=== PATIENT | female | born 1955 | race Caucasian/White ===

== ENCOUNTER 2023-06-19 15:08 | Emergency (ER) | payer OTHER ==
[~2023-06-19] VITALS: Ht 182.9 cm; Wt 68.3 kg
[~2023-06-19 15:08] MED LIST: ARIP2TAB PO; BECL0.07 INH; CITA20TA3 PO; HYDR12.59 PO; NOR10T PO
[2023-06-19] MEDS ORDERED: HYDR-4902 PO (16:26)
[2023-06-19] MEDS ORDERED: HYDROcodone-ACET 5/325MG TAB PO ONE (16:30)
[2023-06-19 17:08] VITALS: BP 120/66; PULSE 60; RESP 20; TEMP 97.9; O2SAT 100
== END 2023-06-19 17:22 | disposition home or self-care (01) ==
LOC: ER 15:08
DX: S93.602A Unspecified sprain of left foot, initial encounter (principal); I10 Essential (primary) hypertension; E78.5 Hyperlipidemia, unspecified; Z79.899 Other long term (current) drug therapy; Z88.0 Allergy status to penicillin; W20.8XXA Other cause of strike by thrown, projected or falling object, initial encounter; Y92.89 Other specified places as the place of occurrence of the external cause; Y93.89 Activity, other specified; Y99.8 Other external cause status
CPT/HCPCS: 73630

== ENCOUNTER 2024-07-19 15:01 | Inpatient (IN) | payer OTHER, MEDICAID ==
[~2024-07-19] VITALS: Ht 180.3 cm; Wt 68.1 kg
[2024-07-19] VITALS (26 sets, daily range): BP systolic 94–126; BP diastolic 38–62; PULSE 60–81; RESP 16–18; TEMP 97.7; O2SAT 96–100
[~2024-07-19 15:01] MED LIST changes: +ATOR20TA PO; +CITA-73 PO; +HYDR-4902 PO; +OFL50TS OT; +OXYB5TAB14 PO; +TIZA1TAB20 PO; +TRAZ1TAB12 PO
[2024-07-19] MEDS: SODIUM CHLORIDE 0.9% 1,000 ML IV ONE (15:15)
[2024-07-19 16:10] LABS: Basophils # (auto) 0.1 10 ^3/uL (0-0.2); Basophils % (auto) 0.5 % (0.0-2.0); Eosinophils # (auto) 0.1 10 ^3/uL (0-0.8); Eosinophils % (auto) 0.8 % (0.0-7.0); Hematocrit 38.5 % (36.0-46.0); Hemoglobin 13.5 g/dL (12.2-16.2); Lymphocytes # (auto) 1.5 10 ^3/uL (0.4-5.4); Lymphocytes % (auto) 13.7 % (10.0-50.0); Mean Corpuscular Hemoglobin 29.4 pg (28.0-32.0); Monocytes # (auto) 0.9 10 ^3/uL (0-1.3); Monocytes % (auto) 8.1 % (0.0-12.0); Neutrophils # (auto) 8.3 10 ^3/uL (1.6-8.6); Neutrophils % (auto) 76.9 % (37.0-80.0); Nucleated Red Blood Cells % 0.1 %; Platelet Count (auto) 307 10^3/uL (140-450); Red Blood Cells 4.58 10^6/uL (4.0-5.20); Red Cell Distribution Width 14.5 % (11.8-14.3); White Blood Cell 10.8 10^3/uL (4.4-10.8)
[2024-07-19 16:21] LABS: Chloride 96 mmol/L (98-107); Sodium 135 mmol/L (136-145)
[2024-07-19 16:22] LABS: Anion Gap 10 (5-15); Calcium 8.1 mg/dL (8.7-10.4); Carbon Dioxide 29 mmol/L (20-31)
[2024-07-19 16:27] LABS: Blood Urea Nitrogen 26 mg/dL (9-23); Glucose 121 mg/dL (74-106)
[2024-07-19 16:31] LABS: Potassium 2.1 mmol/L (3.5-5.1)
[2024-07-19] MEDS: POTASSIUM CHL 20MEQ/100ML 100 ML IV SCH (16:48)
[2024-07-19] MEDS: POTASSIUM CHL 20MEQ/100ML 300 ML IV ONE (16:57)
[2024-07-19] MEDS: LIDOCAINE HCL 100 MG/5ML (2%) SYRG INJ IV ONE (17:04)
[2024-07-19] MEDS: MIDAZOLAM HCL 5 MG/ML-1ML VIAL IV ONE (17:06)
[2024-07-19] MEDS: ETOMIDATE (2MG/ML) 20ML VIAL IV ONE ×2 (17:06→17:09)
[2024-07-19] MEDS: MIDAZOLAM HCL 5 MG/ML-1ML VIAL ONE (17:10)
[2024-07-19] MEDS: MIDAZOLAM DRIP 50 mg/50mL 50 ML IV ONE ×2 (17:17→18:28)
[2024-07-19] MEDS: DOPamine 1600MCG/ML D5W 0 ML IV ONE (17:17)
[2024-07-19] MEDS: DOPamine 1600MCG/ML D5W 250 ML IV SCH (17:18)
[2024-07-19] MEDS: fentaNYL Drip 2500mCg/250mlNS 250 ML IV SCH (17:50)
[2024-07-19] MEDS: fentaNYL Drip 2500mCg/250mlNS 250 ML IV ONE (17:59)
[2024-07-19] MEDS: PROPOFOL 100 ML IV SCH (18:31)
[2024-07-19] MEDS: MIDAZOLAM DRIP 50 mg/50mL 50 ML IV SCH (18:35)
[2024-07-19 18:55] LABS: Base Excess 3.6 mmol/L (-2.0-3.0)
[2024-07-19] MEDS ORDERED: MORPHINE SULFATE INJ 2 MG/ml SYRG IV PRN (19:15)
[2024-07-19] MEDS ORDERED: NITROGLYCERIN 0.4 MG SL TAB SL PRN (19:15)
[2024-07-19] MEDS ORDERED: HYDROmorphone HCL 2 MG/ML VL/or syr IV PRN (19:15)
[2024-07-19 20:25] LABS: Alanine Aminotransferase 15 U/L (7-40); Albumin 3.4 g/dL (3.2-4.8); Alkaline Phosphatase 94 U/L (46-116); Anion Gap 9 (5-15); Aspartate Aminotransferase 35 U/L (13-40); BUN/Creatinine Ratio 17.2 (10.0-20.0); Bilirubin, Total 0.9 mg/dL (0.2-1.0); Blood Urea Nitrogen 21 mg/dL (9-23); Calcium 8.1 mg/dL (8.7-10.4); Carbon Dioxide 26 mmol/L (20-31); Chloride 101 mmol/L (98-107); Glucose 150 mg/dL (74-106); Sodium 136 mmol/L (136-145); Total Protein 6.1 g/dL (5.7-8.2)
[2024-07-19] MEDS: SODIUM CHLOR 0.9% PF (SALINE LOCK) 10ML VIAL/SYR IV SCH (20:39)
[2024-07-19 22:09] LABS: Urine Bacteria None Seen /hpf (None Seen)
[2024-07-19 22:25] LABS: Sodium Urine 111 mmol/L (40-220)
[2024-07-19 22:30] LABS: Protein, Urine < 6.0 mg/dL (1-14); Urine Blood Negative /uL (Negative); Urine Clarity Clear (Clear); Urine Color Colorless (Yellow); Urine Hyaline Cast FEW /lpf (0 - 2); Urine Protein, UAD Negative (Negative); Urine Specific Gravity 1.007 (1.001-1.035); Urine Urobilinogen Normal (Negative); Urine WBC 5 /hpf (0 - 5)
[2024-07-19 22:32] LABS: Barbiturate Scree,Urine Neg (NEGATIVE); Benzodiazephine Screen, Urine Pos (NEGATIVE); Cannabinoid Screen, Urine Neg (NEGATIVE); Cocaine Screen, Urine Neg (NEGATIVE); Opiate Scree,Urine Neg (NEGATIVE); Phencyclidine Screen, Urine Neg (NEGATIVE)
[2024-07-19 22:33] LABS: Amphetamine Screen, Urine Neg (NEGATIVE); Creatinine, Urine 28.16 mg/dL (30.0-125.0)
[2024-07-19 22:46] LABS: Urine Protein/Creatinine Ratio 0.21
[2024-07-19] MEDS: POTASSIUM CHL 20MEQ/100ML 100 ML IV ONE (22:52)
[2024-07-20] VITALS (86 sets, daily range): BP systolic 82–118; BP diastolic 31–53; PULSE 66–133; RESP 15–17; TEMP 97.6–98.3; O2SAT 99–100
[2024-07-20 05:29] LABS: Basophils # (auto) 0.1 10 ^3/uL (0-0.2); Basophils % (auto) 0.5 % (0.0-2.0); Eosinophils # (auto) 0.2 10 ^3/uL (0-0.8); Eosinophils % (auto) 1.3 % (0.0-7.0); Hematocrit 36.2 % (36.0-46.0); Hemoglobin 12.5 g/dL (12.2-16.2); Lymphocytes # (auto) 2.4 10 ^3/uL (0.4-5.4); Lymphocytes % (auto) 16.6 % (10.0-50.0); Mean Corpuscular Hemoglobin 29.4 pg (28.0-32.0); Mean Corpuscular Hgb Conc. 34.6 g/dL (32.0-36.0); Mean Corpuscular Volume 84.9 fL (80.0-100.0); Monocytes # (auto) 1.2 10 ^3/uL (0-1.3); Neutrophils # (auto) 10.8 10 ^3/uL (1.6-8.6); Neutrophils % (auto) 73.6 % (37.0-80.0); Platelet Count (auto) 306 10^3/uL (140-450); Red Blood Cells 4.26 10^6/uL (4.0-5.20); Red Cell Distribution Width 14.5 % (11.8-14.3); White Blood Cell 14.7 10^3/uL (4.4-10.8)
[2024-07-20 05:49] LABS: Alanine Aminotransferase 14 U/L (7-40); Albumin 3.2 g/dL (3.2-4.8); Alkaline Phosphatase 95 U/L (46-116); Anion Gap 7 (5-15); Aspartate Aminotransferase 21 U/L (13-40); Blood Urea Nitrogen 21 mg/dL (9-23); Carbon Dioxide 27 mmol/L (20-31); Chloride 103 mmol/L (98-107); Glucose 131 mg/dL (74-106); Magnesium 1.6 mg/dL (1.6-2.6); Sodium 137 mmol/L (136-145)
[2024-07-20 05:50] LABS: Bilirubin, Total 0.6 mg/dL (0.2-1.0); Total Protein 5.5 g/dL (5.7-8.2)
[2024-07-20 05:52] LABS: Potassium 2.1 mmol/L (3.5-5.1)
[2024-07-20] MEDS: POTASSIUM CHL 20MEQ/100ML 100 ML IV ONE (06:34)
[2024-07-20] MEDS: SODIUM CHLORIDE 0.9% 1,000 ML IV ONE (06:34)
[2024-07-20 06:39] LABS: Base Excess 2.1 mmol/L (-2.0-3.0)
[2024-07-20] MEDS ORDERED: LIDOCAINE HCL 100 MG/5ML (2%) SYRG INJ IV ONE (08:24)
[2024-07-20] MEDS: POTASSIUM CHLORIDE 80 MEQ, LIDOCAINE 1% (LOCAL ANESTH.) 6 ML in SODIUM CHL 0.9% 500 ML IV STA (09:39)
[2024-07-20] MEDS: MAGNESIUM SULFATE 1GM/100ML 100 ML IV ONE ×2 (09:52→23:21)
[2024-07-20] MEDS: ENOXAPARIN SOD 40 MG/0.4 ML SYRINGE SC SCH (09:53)
[2024-07-20 11:28] LABS: Potassium 2.6 mmol/L (3.5-5.1)
[2024-07-20 11:35] LABS: Magnesium 1.5 mg/dL (1.6-2.6)
[2024-07-20] MEDS: MAGNESIUM SULFATE 1GM/100ML 100 ML IV SCH (12:07)
[2024-07-20] MEDS: POTASSIUM EFFERVESENT TAB 25 MEQ GT SCH (15:25)
[2024-07-20 16:48] LABS: Potassium 3.1 mmol/L (3.5-5.1)
[2024-07-20] MEDS: POTASSIUM CHL 20MEQ/100ML 100 ML IV SCH (18:16)
[2024-07-20 22:37] LABS: Chloride 108 mmol/L (98-107); Potassium 3.6 mmol/L (3.5-5.1); Sodium 138 mmol/L (136-145)
[2024-07-20 22:38] LABS: Anion Gap 3 (5-15); Calcium 8.3 mg/dL (8.7-10.4); Carbon Dioxide 27 mmol/L (20-31)
[2024-07-20 22:43] LABS: BUN/Creatinine Ratio 16.5 (10.0-20.0); Blood Urea Nitrogen 13 mg/dL (9-23); Glucose 112 mg/dL (74-106); Magnesium 1.8 mg/dL (1.6-2.6)
[2024-07-21] VITALS (106 sets, daily range): BP systolic 69–134; BP diastolic 30–60; PULSE 64–90; RESP 12–20; TEMP 97.7–99.2; O2SAT 94–100
[2024-07-21 03:52] LABS: Basophils # (auto) 0.1 10 ^3/uL (0-0.2); Basophils % (auto) 0.3 % (0.0-2.0); Eosinophils # (auto) 0.3 10 ^3/uL (0-0.8); Eosinophils % (auto) 1.7 % (0.0-7.0); Hematocrit 31.7 % (36.0-46.0); Hemoglobin 11.3 g/dL (12.2-16.2); Lymphocytes # (auto) 1.9 10 ^3/uL (0.4-5.4); Lymphocytes % (auto) 10.3 % (10.0-50.0); Mean Corpuscular Hemoglobin 30.3 pg (28.0-32.0); Mean Corpuscular Hgb Conc. 35.5 g/dL (32.0-36.0); Mean Corpuscular Volume 85.4 fL (80.0-100.0); Monocytes # (auto) 1.1 10 ^3/uL (0-1.3); Monocytes % (auto) 5.9 % (0.0-12.0); Neutrophils # (auto) 14.7 10 ^3/uL (1.6-8.6); Neutrophils % (auto) 81.8 % (37.0-80.0); Platelet Count (auto) 233 10^3/uL (140-450); Red Blood Cells 3.71 10^6/uL (4.0-5.20); Red Cell Distribution Width 14.5 % (11.8-14.3)
[2024-07-21 04:02] LABS: Alkaline Phosphatase 86 U/L (46-116); Anion Gap 4 (5-15); Blood Urea Nitrogen 12 mg/dL (9-23); Calcium 8.5 mg/dL (8.7-10.4); Carbon Dioxide 27 mmol/L (20-31); Chloride 108 mmol/L (98-107); Glucose 101 mg/dL (74-106); Magnesium 2.3 mg/dL (1.6-2.6); Potassium 3.5 mmol/L (3.5-5.1); Sodium 139 mmol/L (136-145)
[2024-07-21 04:03] LABS: Aspartate Aminotransferase 15 U/L (13-40)
[2024-07-21 04:04] LABS: Bilirubin, Total 0.5 mg/dL (0.2-1.0); Total Protein 5.4 g/dL (5.7-8.2)
[2024-07-21 04:13] LABS: Alanine Aminotransferase 9 U/L (7-40)
[2024-07-21 07:15] LABS: Base Excess 1.9 mmol/L (-2.0-3.0)
[2024-07-21] MEDS ORDERED: VANCOMYCIN PER PHARMACY 0 MG IV SCH (08:00)
[2024-07-21] MEDS: LACTATED RINGER'S 1,000 ML IV ONE (09:42)
[2024-07-21] MEDS: SOD CHL 0.9%/ KCL 40MEQ 1,000 ML IV SCH ×2 (09:51→15:47)
[2024-07-21] MEDS: METOCLOPRAMIDE HCL 5MG/ml INJ 2ml VIAL IV ONE (09:53)
[2024-07-21] MEDS: MAGNESIUM SULFATE 1GM/100ML 100 ML IV SCH (10:00)
[2024-07-21] MEDS: levoFLOXacin 500MG 100 ML IV SCH (10:03)
[2024-07-21] MEDS: VANCOMYCIN 1.75GM/350ML 350 ML IV ONE (10:11)
[2024-07-21] MEDS: POTASSIUM PHOSPHATE 26.4 MEQ in SODIUM CHL 0.9% 100 ML IV ONE (15:23)
[2024-07-21] MEDS ORDERED: CLIN1CAP70 PO (15:58)
[2024-07-21] MEDS: SULFAMETH-TRIMETH 80/16MG-ML 10 ML in D5W 5% 250 ML IV SCH (16:31)
[2024-07-21 21:15] LABS: Chloride 109 mmol/L (98-107); Potassium 3.9 mmol/L (3.5-5.1); Sodium 138 mmol/L (136-145)
[2024-07-21 21:16] LABS: Anion Gap 2 (5-15); Calcium 8.2 mg/dL (8.7-10.4); Carbon Dioxide 27 mmol/L (20-31)
[2024-07-21 21:21] LABS: BUN/Creatinine Ratio 12.7 (10.0-20.0); Blood Urea Nitrogen 9 mg/dL (9-23); Glucose 89 mg/dL (74-106)
[2024-07-21] MEDS: MAGNESIUM SULFATE 1GM/100ML 100 ML IV ONE ×2 (21:43→21:45)
[2024-07-22] VITALS (111 sets, daily range): BP systolic 88–138; BP diastolic 31–78; PULSE 52–83; RESP 11–24; TEMP 98–98.3; O2SAT 87–100
[2024-07-22 04:00] LABS: Basophils # (auto) 0 10 ^3/uL (0-0.2); Basophils % (auto) 0.2 % (0.0-2.0); Eosinophils # (auto) 0.3 10 ^3/uL (0-0.8); Eosinophils % (auto) 1.3 % (0.0-7.0); Hematocrit 29.9 % (36.0-46.0); Hemoglobin 10.3 g/dL (12.2-16.2); Lymphocytes # (auto) 1.3 10 ^3/uL (0.4-5.4); Lymphocytes % (auto) 6.6 % (10.0-50.0); Mean Corpuscular Hemoglobin 29.7 pg (28.0-32.0); Mean Corpuscular Hgb Conc. 34.3 g/dL (32.0-36.0); Mean Corpuscular Volume 86.6 fL (80.0-100.0); Monocytes # (auto) 0.9 10 ^3/uL (0-1.3); Monocytes % (auto) 4.5 % (0.0-12.0); Neutrophils # (auto) 17.2 10 ^3/uL (1.6-8.6); Neutrophils % (auto) 87.4 % (37.0-80.0); Platelet Count (auto) 201 10^3/uL (140-450); Red Blood Cells 3.45 10^6/uL (4.0-5.20); Red Cell Distribution Width 14.7 % (11.8-14.3); White Blood Cell 19.7 10^3/uL (4.4-10.8)
[2024-07-22 04:21] LABS: Alanine Aminotransferase < 9 U/L (7-40); Albumin 2.6 g/dL (3.2-4.8); Alkaline Phosphatase 84 U/L (46-116); Anion Gap 6 (5-15); Aspartate Aminotransferase 15 U/L (13-40); BUN/Creatinine Ratio 8.6 (10.0-20.0); Bilirubin, Total 0.3 mg/dL (0.2-1.0); Blood Urea Nitrogen 6 mg/dL (9-23); Calcium 8.1 mg/dL (8.7-10.4); Carbon Dioxide 22 mmol/L (20-31); Chloride 109 mmol/L (98-107); Glucose 82 mg/dL (74-106); Magnesium 2.2 mg/dL (1.6-2.6); Potassium 4.1 mmol/L (3.5-5.1); Sodium 137 mmol/L (136-145)
[2024-07-22 07:09] LABS: Base Excess -0.7 mmol/L (-2.0-3.0)
[2024-07-22] MEDS: LACTULOSE 20Gm/30ML SOLN PO ONE (09:17)
[2024-07-22] MEDS: HYDROCORTISONE SOD SUCC 100 MG/2ML INJ VIAL IV SCH (09:17)
[2024-07-22] MEDS: BISACODYL 10 MG RECT SUPP PR ONE (09:17)
[2024-07-22] MEDS: NOREPINEPHRINE 8 MG/250ML KIT 250 ML IV SCH (09:18)
[2024-07-22] MEDS ORDERED: MAGNESIUM SULFATE 1GM/100ML 100 ML IV SCH (10:00)
[2024-07-22] MEDS: MAGNESIUM SULFATE 1GM/100ML 100 ML IV SCH (12:16)
[2024-07-22] MEDS: METOCLOPRAMIDE 10 mg/10ml ORAL soln GT SCH (13:18)
[2024-07-22] MEDS: SULFAMETH-TRIMETH 80/16MG-ML 20 ML in D5W 5% 500 ML IV SCH (22:26)
[2024-07-23] VITALS (108 sets, daily range): BP systolic 93–129; BP diastolic 36–67; PULSE 51–73; RESP 7–19; TEMP 97.4–98; O2SAT 92–100
[2024-07-23] MEDS: Jevity 1.2 Cal/Fiber 1 Liter GT SCH (00:42)
[2024-07-23 03:44] LABS: Basophils # (auto) 0 10 ^3/uL (0-0.2); Basophils % (auto) 0.1 % (0.0-2.0); Eosinophils # (auto) 0 10 ^3/uL (0-0.8); Hematocrit 26.4 % (36.0-46.0); Hemoglobin 9.4 g/dL (12.2-16.2); Lymphocytes # (auto) 0.6 10 ^3/uL (0.4-5.4); Lymphocytes % (auto) 3.7 % (10.0-50.0); Mean Corpuscular Hemoglobin 30.3 pg (28.0-32.0); Mean Corpuscular Hgb Conc. 35.4 g/dL (32.0-36.0); Mean Corpuscular Volume 85.5 fL (80.0-100.0); Monocytes # (auto) 0.4 10 ^3/uL (0-1.3); Monocytes % (auto) 2.8 % (0.0-12.0); Neutrophils # (auto) 14.5 10 ^3/uL (1.6-8.6); Neutrophils % (auto) 93.4 % (37.0-80.0); Platelet Count (auto) 182 10^3/uL (140-450); Red Blood Cells 3.09 10^6/uL (4.0-5.20); Red Cell Distribution Width 14.7 % (11.8-14.3); White Blood Cell 15.5 10^3/uL (4.4-10.8)
[2024-07-23 03:58] LABS: Albumin 2.7 g/dL (3.2-4.8); Alkaline Phosphatase 83 U/L (46-116); Anion Gap 4 (5-15); Aspartate Aminotransferase < 8 U/L (13-40); BUN/Creatinine Ratio 14.3 (10.0-20.0); Bilirubin, Total < 0.2 mg/dL (0.2-1.0); Blood Urea Nitrogen 11 mg/dL (9-23); Calcium 8.7 mg/dL (8.7-10.4); Carbon Dioxide 26 mmol/L (20-31); Chloride 107 mmol/L (98-107); Glucose 108 mg/dL (74-106); Magnesium 2.4 mg/dL (1.6-2.6); Potassium 3.8 mmol/L (3.5-5.1); Sodium 137 mmol/L (136-145)
[2024-07-23 04:12] LABS: Alanine Aminotransferase < 9 U/L (7-40)
[2024-07-23 06:56] LABS: Base Excess -1.3 mmol/L (-2.0-3.0)
[2024-07-23] MEDS: FUROSEMIDE 20 MG/2 ML VIAL IV ONE (10:44)
[2024-07-23] MEDS: MAGNESIUM SULFATE 1GM/100ML 100 ML IV SCH (15:15)
[2024-07-24] VITALS (110 sets, daily range): BP systolic 87–139; BP diastolic 30–70; PULSE 54–139; RESP 11–28; TEMP 98–98.7; O2SAT 90–100
[2024-07-24 04:38] LABS: Basophils # (auto) 0 10 ^3/uL (0-0.2); Basophils % (auto) 0.1 % (0.0-2.0); Eosinophils # (auto) 0 10 ^3/uL (0-0.8); Hematocrit 25.2 % (36.0-46.0); Hemoglobin 8.8 g/dL (12.2-16.2); Lymphocytes # (auto) 0.6 10 ^3/uL (0.4-5.4); Lymphocytes % (auto) 5.6 % (10.0-50.0); Mean Corpuscular Hemoglobin 30.1 pg (28.0-32.0); Mean Corpuscular Hgb Conc. 35.1 g/dL (32.0-36.0); Mean Corpuscular Volume 85.7 fL (80.0-100.0); Monocytes # (auto) 0.3 10 ^3/uL (0-1.3); Monocytes % (auto) 2.5 % (0.0-12.0); Neutrophils # (auto) 10.4 10 ^3/uL (1.6-8.6); Neutrophils % (auto) 91.8 % (37.0-80.0); Platelet Count (auto) 195 10^3/uL (140-450); Red Blood Cells 2.94 10^6/uL (4.0-5.20); Red Cell Distribution Width 14.8 % (11.8-14.3); White Blood Cell 11.4 10^3/uL (4.4-10.8)
[2024-07-24 04:48] LABS: Alkaline Phosphatase 76 U/L (46-116)
[2024-07-24 04:49] LABS: Albumin 2.7 g/dL (3.2-4.8); Anion Gap 7 (5-15); Aspartate Aminotransferase 12 U/L (13-40); BUN/Creatinine Ratio 10.3 (10.0-20.0); Blood Urea Nitrogen 10 mg/dL (9-23); Calcium 8.5 mg/dL (8.7-10.4); Carbon Dioxide 26 mmol/L (20-31); Chloride 100 mmol/L (98-107); Glucose 120 mg/dL (74-106); Magnesium 2.3 mg/dL (1.6-2.6); Potassium 3.5 mmol/L (3.5-5.1); Sodium 133 mmol/L (136-145)
[2024-07-24 04:50] LABS: Bilirubin, Total < 0.2 mg/dL (0.2-1.0); Total Protein 4.9 g/dL (5.7-8.2)
[2024-07-24 05:33] LABS: Alanine Aminotransferase < 9 U/L (7-40)
[2024-07-24 07:03] LABS: Base Excess 0.1 mmol/L (-2.0-3.0)
[2024-07-24] MEDS: POTASSIUM CHL 20MEQ/100ML 100 ML IV ONE (09:54)
[2024-07-24] MEDS: MAGNESIUM SULFATE 1GM/100ML 100 ML IV SCH (11:49)
[2024-07-24] MEDS: ALBUTEROL SULF 2.5 MG/0.5ML(0.5%) NEB SOLN NEB SCH (11:50)
[2024-07-24] MEDS: IPRATROPIUM BROM 0.5 MG/2.5ML INH SOL NEB SCH (11:50)
[2024-07-24] MEDS: ONDANSETRON HCL 4 MG/2 ML VIAL IV PRN (12:18)
[2024-07-25] VITALS (108 sets, daily range): BP systolic 75–160; BP diastolic 34–79; PULSE 60–113; RESP 9–26; TEMP 97.7–98.4; O2SAT 77–100
[2024-07-25 03:55] LABS: Basophils # (auto) 0 10 ^3/uL (0-0.2); Basophils % (auto) 0.1 % (0.0-2.0); Eosinophils # (auto) 0 10 ^3/uL (0-0.8); Eosinophils % (auto) 0.2 % (0.0-7.0); Hematocrit 25.6 % (36.0-46.0); Hemoglobin 9.1 g/dL (12.2-16.2); Lymphocytes # (auto) 0.5 10 ^3/uL (0.4-5.4); Lymphocytes % (auto) 7.1 % (10.0-50.0); Mean Corpuscular Hemoglobin 30.1 pg (28.0-32.0); Mean Corpuscular Hgb Conc. 35.6 g/dL (32.0-36.0); Mean Corpuscular Volume 84.7 fL (80.0-100.0); Monocytes # (auto) 0.2 10 ^3/uL (0-1.3); Monocytes % (auto) 2.2 % (0.0-12.0); Neutrophils # (auto) 6.7 10 ^3/uL (1.6-8.6); Neutrophils % (auto) 90.4 % (37.0-80.0); Platelet Count (auto) 228 10^3/uL (140-450); Red Blood Cells 3.02 10^6/uL (4.0-5.20); Red Cell Distribution Width 15.1 % (11.8-14.3); White Blood Cell 7.4 10^3/uL (4.4-10.8)
[2024-07-25 04:08] LABS: Calcium 8.5 mg/dL (8.7-10.4); Chloride 101 mmol/L (98-107); Sodium 133 mmol/L (136-145)
[2024-07-25 04:09] LABS: Anion Gap 5 (5-15); Carbon Dioxide 27 mmol/L (20-31)
[2024-07-25 04:14] LABS: BUN/Creatinine Ratio 10.4 (10.0-20.0); Blood Urea Nitrogen 10 mg/dL (9-23); Glucose 148 mg/dL (74-106)
[2024-07-25 04:15] LABS: Magnesium 2.1 mg/dL (1.6-2.6)
[2024-07-25 08:56] LABS: Base Excess 0.2 mmol/L (-2.0-3.0)
[2024-07-25] MEDS: NOREPINEPHRINE 8 MG/250ML KIT 250 ML IV SCH (13:00)
[2024-07-26] VITALS (71 sets, daily range): BP systolic 94–145; BP diastolic 39–84; PULSE 68–92; RESP 10–26; TEMP 97.9–98.8; O2SAT 92–100
[2024-07-26 04:10] LABS: Basophils # (auto) 0 10 ^3/uL (0-0.2); Basophils % (auto) 0.2 % (0.0-2.0); Eosinophils # (auto) 0 10 ^3/uL (0-0.8); Eosinophils % (auto) 0.3 % (0.0-7.0); Hematocrit 23.5 % (36.0-46.0); Hemoglobin 8.2 g/dL (12.2-16.2); Lymphocytes # (auto) 0.9 10 ^3/uL (0.4-5.4); Mean Corpuscular Hemoglobin 29.9 pg (28.0-32.0); Mean Corpuscular Hgb Conc. 35.1 g/dL (32.0-36.0); Mean Corpuscular Volume 85.3 fL (80.0-100.0); Monocytes # (auto) 0.3 10 ^3/uL (0-1.3); Neutrophils # (auto) 5.8 10 ^3/uL (1.6-8.6); Neutrophils % (auto) 82.5 % (37.0-80.0); Nucleated Red Blood Cells % 0.1 %; Platelet Count (auto) 210 10^3/uL (140-450); Red Blood Cells 2.76 10^6/uL (4.0-5.20); Red Cell Distribution Width 14.7 % (11.8-14.3)
[2024-07-26 04:34] LABS: Alanine Aminotransferase 11 U/L (7-40); Alkaline Phosphatase 63 U/L (46-116); Anion Gap 8 (5-15); Aspartate Aminotransferase 12 U/L (13-40); BUN/Creatinine Ratio 11.1 (10.0-20.0); Blood Urea Nitrogen 9 mg/dL (9-23); Calcium 8.3 mg/dL (8.7-10.4); Carbon Dioxide 28 mmol/L (20-31); Chloride 100 mmol/L (98-107); Glucose 82 mg/dL (74-106); Magnesium 1.9 mg/dL (1.6-2.6); Sodium 136 mmol/L (136-145)
[2024-07-26 04:35] LABS: Albumin 2.6 g/dL (3.2-4.8); Bilirubin, Total 0.2 mg/dL (0.2-1.0); Total Protein 4.6 g/dL (5.7-8.2)
[2024-07-26] MEDS: CEFEPIME 2GM/50ML NS 50 ML IV SCH (21:52)
[2024-07-27] VITALS (17 sets, daily range): BP systolic 121–158; BP diastolic 42–59; PULSE 82–99; RESP 6–22; TEMP 97.7–98.3; O2SAT 86–98
[2024-07-27] MEDS: BISACODYL 10 MG RECT SUPP PR ONE (15:24)
[2024-07-27] MEDS: SENNA 8.6 MG TAB PO ONE (15:24)
[2024-07-27] MEDS: CELECOXIB 100 MG CAP PO SCH (21:02)
[2024-07-28] VITALS (16 sets, daily range): BP systolic 106–160; BP diastolic 42–77; PULSE 80–100; RESP 16–22; TEMP 97.6–98.9; O2SAT 93–100
[2024-07-28] MEDS: levoFLOXacin 500 MG TAB PO SCH (15:33)
[2024-07-29] VITALS (11 sets, daily range): BP systolic 102–152; BP diastolic 47–79; PULSE 85–92; RESP 16–22; TEMP 36.7; O2SAT 98–100
== END 2024-07-29 13:58 | disposition left against medical advice (07) | DRG 870 ==
LOC: EDBD 15:01 → ER 15:04 → OVERFLOW 19:18 → ICU WEST 07-20 13:05 → TELE-WESTW 07-26 21:00 → WEST WING 07-27 14:51
PROVIDERS: ADMIT Internal Medicine; ATTEND Nurse Practitioner Acute Care
PROC: 5A1955Z Respiratory Ventilation, Greater than 96 Consecutive Hours (ICD-10-PCS; principal; 2024-07-19)
PROC: 0BH17EZ Insertion of Endotracheal Airway into Trachea, Via Natural or Artificial Opening (ICD-10-PCS; 2024-07-19)
PROC: 05HM33Z Insertion of Infusion Device into Right Internal Jugular Vein, Percutaneous Approach (ICD-10-PCS; 2024-07-19)
DX: A41.51 Sepsis due to Escherichia coli [E. coli] (principal); J15.0 Pneumonia due to Klebsiella pneumoniae; J96.01 Acute respiratory failure with hypoxia; G93.41 Metabolic encephalopathy; N17.0 Acute kidney failure with tubular necrosis; R65.21 Severe sepsis with septic shock; I46.9 Cardiac arrest, cause unspecified; I50.31 Acute diastolic (congestive) heart failure; I47.20 Ventricular tachycardia, unspecified; J44.1 Chronic obstructive pulmonary disease with (acute) exacerbation; J44.0 Chronic obstructive pulmonary disease with (acute) lower respiratory infection; I47.21 Torsades de pointes; N39.0 Urinary tract infection, site not specified; E87.6 Hypokalemia; I11.0 Hypertensive heart disease with heart failure; M27.2 Inflammatory conditions of jaws; S09.90XA Unspecified injury of head, initial encounter; E78.5 Hyperlipidemia, unspecified; G90.89 Other disorders of autonomic nervous system; F32.A Depression, unspecified; E83.42 Hypomagnesemia; I49.3 Ventricular premature depolarization; X58.XXXA Exposure to other specified factors, initial encounter; Z88.0 Allergy status to penicillin; Z79.891 Long term (current) use of opiate analgesic; Z79.899 Other long term (current) drug therapy; Z82.5 Family history of asthma and other chronic lower respiratory diseases; Y93.89 Activity, other specified; Y92.89 Other specified places as the place of occurrence of the external cause; Y99.8 Other external cause status
CPT/HCPCS: 36415; 36600; 70450; 71045; 74018; 76775; 80048; 80053; 80307; 81001; 82570; 82805; 83735; 84100; 84132; 84156; 84300; 84484; 85025; 87070; 87077; 87081; 87086; 87088; 87186; 87205; 93005; 93306; 94002; 94003; 94640; 96365; 96375; 97110; 97116; 97163; 97530; 99291; G0378; J0692; J1956; J2003; J2250; J2405; J2704; J3480; J3490; J7060

== ENCOUNTER 2025-05-01 11:18 | Emergency (ER) | payer MEDICAID, MEDICARE, OTHER ==
[~2025-05-01] VITALS: Ht 167.6 cm; Wt 54.5 kg
[~2025-05-01 11:18] MED LIST changes: -ARIP2TAB PO; -BECL0.07 INH; -CITA20TA3 PO; +CLIN1CAP70 PO; -HYDR-4902 PO; -NOR10T PO
--- NOTE | 2025-05-01 11:54 | ED.PDOC ---
Psychiatric HPI Comments This is a 69-year-old female, with a PMHX of depression, who presents to the ED via EMS for suicidal attempt via overdose. Patient reports that she tried to overdose with X10 325mg of oxycodone. Upon triage, patient reports she has no place to go. Per EMS, patient was staying at a [address] and called EMS on herself after the overdose. Patient confirms a suicidal attempt but denies any homicidal ideation, auditory or visual hallucinations, or further symptoms of N/V, fever, chills, or abdominal pain. 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: No Pertinent WASH BOX OPERATOR History Family History Family History: Unknown Social History Smoker: Cigarettes Alcohol: Denies ETOH Use Drugs: Denies Drug Use Lives In: Home Constitutional: denies: chills, diaphoresis, fatigue, fever, malaise, sweats, weakness, others EENTM: denies: blurred vision, double vision, ear bleeding, ear discharge, ear drainage, ear pain, ear ringing, eye pain, eye redness, hearing loss, mouth pain, mouth swelling, nasal discharge, nose bleeding, nose congestion, nose pain, photophobia, tearing, throat pain, throat swelling, voice changes, others Respiratory: denies: cough, hemoptysis, orthopnea, SOB at rest, shortness of breath, SOB with excertion, stridor, wheezing, others Cardiovascular: denies: chest pain, dizzy spells, diaphoresis, Dyspnea on exertion, edema, irregular heart beat, left arm pain, lightheadedness, palpitations, PND, syncope, others Gastrointestinal: denies: abdomen distended, abdominal pain, blood streaked bowels, constipated, diarrhea, dysphagia, difficulty swallowing, hematemesis, melena, nausea, poor appetite, poor fluid intake, rectal bleeding, rectal pain, vomiting, others Genitourinary: denies: abnormal vagina bleeding, burning, dyspareunia, dysuria, flank pain, frequency, hematuria, incontinence, pain, , vagina discharge, urgency, others Neurological: denies: dizziness, fainting, headache, left sided numbness, left sided weakness, numbness, paresthesia, pre-existing deficit, right sided numbness, right sided weakness, seizure, speech problems, tingling, tremors, weakness, others Musculoskeletal: denies: back pain, gout, joint pain, joint swelling, muscle pain, muscle stiffness, neck pain, others Integumetry: denies: bruises, change in color, change in hair/nails, dryness, laceration, lesions, lumps, rash, wounds, others Allergic/Immunocompromised: denies: Difficulty Healing, Frequent Infections, Hives, Itching, others Hematologic/Lymphatic: denies: anemia, blood clots, easy bleeding, easy bruising, swollen glands, others Endocrine: denies: excessive hunger, excessive sweating, excessive thirst, excessive urination, flushing, intolerance to cold, intolerance to heat, unexplained weight gain, unexplained weight loss, others Psychiatric: reports: suicidal; denies: anxiety, bipolar disorder, depression, hopeless, panic disorder, schizophrenia, sleepless, others All Other Systems: Reviewed and Negative Physical Exam General Appearance: Moderate Distress HEENT: Normal ENT Inspection, Pharynx Normal, TMs Normal Neck: Full Range of Motion, Non-Tender, Normal, Normal Inspection Respiratory: Chest Non-Tender, Lungs Clear, No Accessory Muscle Use, No Respiratory Distress, Normal Breath Sounds Cardiovascular: No Edema, No JVD, No Murmur, No Gallop, Normal Peripheral Pulses, Regular Rate/Rhythm Breast Exam: Deferred Gastrointestinal: No Organomegaly, Non Tender, No Pulsatile Mass, Normal Bowel Sounds, Soft Genitalia: Deferred Pelvic: Deferred Rectal: Deferred Extremities: No calf tenderness, Normal capillary refill, Normal inspection, Normal range of motion, Non-tender, No pedal edema Musculoskeletal : Apperance: Normal Neurologic: Alert, casing grader II-XII nml as Tested, No Motor Deficits, Normal Affect, Normal Mood, No Sensory Deficits Cerebellar Function: NOT DONE Reflexes: NOT DONE Skin: Dry, Normal Color, Warm Peripheral Pulses: 3+ Radial (R), 3+ Radial (L) Lymphatic: No Adenopathy Was a procedure done? Was a procedure done?: No Psych Differential Dx Psych. Differential Dx: Depression, Hopeless, Suicidal OD Differential Dx: Drug Overdose X-Ray, Labs, Meds, VS Vital Signs Date Time Temp Pulse Resp B/P (MAP) Pulse Ox O2 Delivery O2 Flow Rate FiO2 05/01/25 11:21 97.8 71 18 162/75 98 97.8 Lab Test 05/01/25 11:34 Range/Units Plasma/Serum Blood Alcohol Pending Patient alert. Answering all questions. Vitals stable. Saturation pristine on room air. Charcoal was not given because we unknown whether she has not even taken the medication. Mentating well with following commands. Denies suicide homicidal ideation. Medically cleared. Psychiatric evaluation. Time of 1ST Reevaluation: 12:21 Reevaluation 1ST: Improved Patient Education/Counseling: Diagnosis, Treatment Family Education/Counseling: No Family Present Departure 1 Departure Time of Disposition: 12:15 Impression: Primary Impression: Depression Qualified Codes: F32.A - Depression, unspecified Disposition: 30 STILL A PATIENT Condition: Good Critical Care Note Critical Care Time?: No Stability Stability form required: No Heart Score Heart Score: Heart Score Response (Comments) Value History N/A 0 EKG N/A 0 Age N/A 0 Risk Factors N/A 0 Troponin N/A 0 Total 0 I personally scribed for EVERARDO FIGUEROA MD ([email or web address]) on 05/01/25 at 11:54. Electronically submitted by Eula Dye ([facility]). EVERARDO FIGUEROA MD May 01, 2025 11:54
[2025-05-01 17:53] LABS: Hematocrit 36.9 % (36.0-46.0); Hemoglobin 12.9 g/dL (12.2-16.2); Mean Corpuscular Hemoglobin 31.0 pg (28.0-32.0); Mean Corpuscular Volume 88.6 fL (80.0-100.0); Nucleated Red Blood Cells % 0.1 %
[2025-05-01 18:07] LABS: Alanine Aminotransferase 11 U/L (7-40); Albumin 4.1 g/dL (3.2-4.8); Alkaline Phosphatase 110 U/L (46-116); Anion Gap 10 (5-15); BUN/Creatinine Ratio 15.2 (10.0-20.0); Bilirubin, Total 0.4 mg/dL (0.2-1.0); Blood Urea Nitrogen 17 mg/dL (9-23); Calcium 8.8 mg/dL (8.7-10.4); Carbon Dioxide 23 mmol/L (20-31); Chloride 105 mmol/L (98-107); Potassium 3.7 mmol/L (3.5-5.1); Sodium 138 mmol/L (136-145); Total Protein 6.5 g/dL (5.7-8.2)
[2025-05-01 18:12] LABS: Glucose 112 mg/dL (74-106)
[2025-05-01 18:19] LABS: Acetaminophen 18.0 UG/ML (10.0-20.0)
[2025-05-01 18:23] LABS: Salicylate < 3.0 mg/dL (-30)
[2025-05-01 19:10] LABS: Opiate Scree,Urine Neg (NEGATIVE)
[2025-05-01 19:14] LABS: Amphetamine Screen, Urine Neg (NEGATIVE); Barbiturate Scree,Urine Neg (NEGATIVE); Benzodiazephine Screen, Urine Neg (NEGATIVE); Cannabinoid Screen, Urine Neg (NEGATIVE); Cocaine Screen, Urine Neg (NEGATIVE); Phencyclidine Screen, Urine Neg (NEGATIVE)
--- NOTE | 2025-05-02 04:12 | DVHINCON2 ---
Date of Service if different f: May 02, 2025 Time of Service: 03:45 Consult Consult Note PSYCHIATRY ED NEW CONSULT HPI: 69 yo pt with PPH of depression presents to ED BIBA for safety, psychiatric stabilization, and possible med initiation/optimization in setting of homelessness, depression, and SA via intentional drug OD of ~ 10 tabs of Oxycodone 10/325 pills. Psychiatry consulted for safety evaluation and recommendations in context of current presentation Pt reports over past several days experiencing worsening depressed mood, hopelessness/helplessness, poor sleep/appetite, and anxiety symptoms to include excessive worry, rumination, restlessness, racing thoughts, etc. Also intermittent SI with onset earlier today resulting in SA via intentional drug OD of ~ 10 tabs of Oxycodone 10/325 pills, pt notes self induced emesis shortly after ingestion due to fear of "being found in a motel room" and subsequently contacted 911 Identifies primary stress as inadequate housing, no/limited support system, and financial strains. Denies HI/AVH/paranoia/catatonic/perceptual disturbances. Does not have active outpt MH services established at this time. Currently not on any psychotropic agents, no prior psych med trials Denies ETOH, THC or IDU Single, several adult children with no contact, unemployed/ssi, lives by self currently in motel for past week after getting evicted from friends residence for unclear reasons, no/limited support system noted Unknown trauma hx. Denies FH of psych hospitalizations, suicide attempts, or completed suicides Some chronic pain issues - rx'd Oxycodone from pain clinic. No hx of seizures/TBI, or recent head injuries although uses walker to ambulate, NKDA Denies hx of SI/SIB/SA/PSG or prior psych hospitalizations/5150 holds. Denies history of violence, aggression, or assaultive behaviors. Denies recent hx of impulsivity, attention seeking behaviors, anger outbursts, emotional dysregulation, mood reactivity, or engaging in risky/reckless behaviors. Denies any legal problems. Does not have access to firearms MSE: General Appearance/Behavior: Alert/awake; appears stated age, poor dentition, dyed hair, fair grooming/hygiene; calm/polite and cooperative, fair eye contact, no PMA/PMR Speech: coherent, rrr Thought Process: L/L/GD, bit concrete Thought Content: Abnormal Thoughts/Perceptions: denies dissociative symptoms Homicidality / Violent Thoughts: adamantly denies HI Suicidality: passive SI Hallucinations: denies AVTH Delusions: denies paranoia, persecutory, or grandiose delusions Obsessions /compulsions: None Judgment/Insight: improved/fair Mood & Affect: "bit sad" with mood-congruent, somewhat restricted/appropriate Orientation: oriented x 3 Attention/Concentration: appears intact Cognition: grossly intact Assessment: 69 yo pt with PPH of depression presents to ED BIBA for safety, psychiatric stabilization, and possible med initiation/optimization in setting of homelessness, depression, and SA via intentional drug OD of ~ 10 tabs of Oxycodone 10/325 pills (followed by self induced emesis) Pt continues to express passive SI in setting of fear of becoming homeless (see hpi). Limited protective factors presently. No outpt MH services at present. Pt agrees to talk with staff instead of acting on any suicidal feelings while in ED. Pt medically cleared in ED Acute safety risk remains slightly elevated and is appropriate for inpatient psychiatric admission for further safety, psychiatric stabilization, and possible medication initiation. Pt willing to transfer to inpt psych facility voluntarily. Consider 5150 hold for DTS ONLY if needed for transfer or if no voluntary beds are available Primary Diagnosis: Adjustment disorder with depressed mood and anxiety. Depressive disorder unspecified Recommend VOL transfer to inpt psych facility for higher level of care 1:1 sitter is recommended Maintain suicide/elopement precautions Defer any psychotropic med initiation to accepting inpt psych facility If patient later refuses voluntary hospitalization/ requests to be discharged from ED prior to transfer, pt can be safely discharged WITHOUT psych reassessment, rather pt would benefit from CONSULT for housing resources Pt verbalized understanding and is receptive to above tx plan This case was discussed with ED nurse/provider and all parties in agreement with above tx plan Hayden Dc MD Plan discussed with: Patient HAYDEN DC MD May 02, 2025 04:12
[2025-05-02 06:00] VITALS: PULSE 56; RESP 18; O2SAT 97
[2025-05-02 09:00] VITALS: RESP 18; O2SAT 97
[2025-05-03 07:30] VITALS: PULSE 66; RESP 18; O2SAT 100
[2025-05-03 08:00] VITALS: BP 122/58; PULSE 66; RESP 18; TEMP 97.3; O2SAT 100
== END 2025-05-03 15:31 | disposition home or self-care (01) ==
LOC: EDBD 11:18 → ER 11:20
DX: T40.2X2A Poisoning by other opioids, intentional self-harm, initial encounter (principal); F32.A Depression, unspecified; F17.210 Nicotine dependence, cigarettes, uncomplicated; J44.9 Chronic obstructive pulmonary disease, unspecified; E78.5 Hyperlipidemia, unspecified; I10 Essential (primary) hypertension; Z98.890 Other specified postprocedural states; Y92.89 Other specified places as the place of occurrence of the external cause
CPT/HCPCS: 36415; 80053; 80307; 80320; 80329; 85025

== ENCOUNTER 2025-05-06 05:58 | Inpatient (IN) | payer MEDICARE, MEDICAID ==
[2025-05-06] VITALS (7 sets, daily range): BP systolic 99–137; BP diastolic 44–69; PULSE 64–101; RESP 17–20; TEMP 97.6–98.1; O2SAT 96–100
[~2025-05-06] VITALS: Ht 170.2 cm; Wt 64.1 kg
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
[2025-05-06 07:01] LABS: Hematocrit 40.5 % (36.0-46.0); Hemoglobin 13.9 g/dL (12.2-16.2); Mean Corpuscular Hemoglobin 30.7 pg (28.0-32.0); Mean Corpuscular Volume 89.3 fL (80.0-100.0); Nucleated Red Blood Cells % 0.0 %
[2025-05-06 07:14] LABS: Chloride 104 mmol/L (98-107); Sodium 138 mmol/L (136-145)
[2025-05-06 07:15] LABS: Anion Gap 9 (5-15); Calcium 9.5 mg/dL (8.7-10.4); Carbon Dioxide 25 mmol/L (20-31)
[2025-05-06 07:20] LABS: BUN/Creatinine Ratio 25.3 (10.0-20.0); Blood Urea Nitrogen 37 mg/dL (9-23); Glucose 108 mg/dL (74-106); Potassium 3.3 mmol/L (3.5-5.1)
--- NOTE | 2025-05-06 07:30 | DVH ---
CHEST RADIOGRAPH Indication: CHEST PAIN DUE TO ANXIETY Technique: Single frontal view of the chest was obtained Comparison: XY CHEST PORTABLE on DOS: 07/25/24 FINDINGS: Lines and Tubes: None Lungs: No focal consolidation. Pleura: No effusion. No pneumothorax. Cardiomediastinal contours: Unremarkable Bones: No acute osseous abnormality. IMPRESSION: 1. No acute cardiopulmonary disease.
[2025-05-06 08:51] LABS: Urine Protein, UAD TRACE (Negative)
[2025-05-06 09:13] LABS: Amphetamine Screen, Urine Pos (NEGATIVE); Barbiturate Scree,Urine Neg (NEGATIVE); Benzodiazephine Screen, Urine Neg (NEGATIVE); Cannabinoid Screen, Urine Neg (NEGATIVE); Cocaine Screen, Urine Neg (NEGATIVE); Opiate Scree,Urine Neg (NEGATIVE); Phencyclidine Screen, Urine Neg (NEGATIVE)
[2025-05-06] MEDS ORDERED: NITROGLYCERIN 0.4 MG SL TAB SL PRN ×2 (10:00)
[2025-05-06] MEDS ORDERED: ONDANSETRON HCL 4 MG/2 ML VIAL IV PRN (10:00)
[2025-05-06] MEDS ORDERED: ACETAMINOPHEN 325 MG TAB PO PRN (10:00)
[2025-05-06] MEDS ORDERED: MORPHINE SULFATE 4 MG/ML SYR/VIAL IV PRN (10:00)
[2025-05-06] MEDS ORDERED: SULFAMETH-TRIMETH 80/16MG-ML 15 ML in D5W 5% 500 ML IV ONE (10:00)
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
[2025-05-06] MEDS: IPRATROPIUM BROM 0.5 MG/2.5ML INH SOL NEB ONE (10:36)
[2025-05-06] MEDS: ALBUTEROL SULF 2.5 MG/0.5ML(0.5%) NEB SOLN NEB ONE (10:36)
[2025-05-06 11:04] LABS: Free T3 2.96 pg/mL (2.3-4.2); Free T4 (Free Thyroxine) 1.34 ng/dL (0.89-1.76)
[2025-05-06] MEDS: ATORVASTATIN 20 MG TAB PO SCH (11:38)
[2025-05-06] MEDS: POTASSIUM CHL 20 Meq TABLET PO ONE (11:38)
[2025-05-06] MEDS: DOCUSATE SOD 100 MG CAP PO SCH (11:39)
[2025-05-06] MEDS: ACETAMINOPHEN 500 MG TAB or CAP PO ONE (11:39)
[2025-05-06] MEDS: SODIUM CHLORIDE 0.9% 1,000 ML IV ONE (11:51)
[2025-05-06] MEDS: POTASSIUM EFFERVESENT TAB 25 MEQ PO ONE (12:03)
[2025-05-06] MEDS: cefTRIAXone 1GM/50ML D5W 50 ML IV ONE (12:16)
[2025-05-06] MEDS: SULFAMETH-TRIMETH 80/16MG-ML 15 ML in D5W 5% 500 ML IV ONE (12:48)
[2025-05-06] MEDS: SODIUM CHLORIDE 0.9% 1,000 ML IV SCH (17:00)
[2025-05-06] MEDS: SULFAMETH-TRIMETH 80/16MG-ML 15 ML in D5W 5% 500 ML IV SCH (21:40)
[2025-05-06] MEDS: ENOXAPARIN SOD 80 MG/0.8ML SYRINGE SC SCH (22:08)
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
[2025-05-07] VITALS (10 sets, daily range): BP systolic 112–121; BP diastolic 37–83; PULSE 62–88; RESP 17–24; TEMP 97.5–98; O2SAT 92–100
[2025-05-07 08:26] LABS: Hematocrit 32.4 % (36.0-46.0); Hemoglobin 11.4 g/dL (12.2-16.2); Mean Corpuscular Hemoglobin 31.2 pg (28.0-32.0); Mean Corpuscular Volume 88.7 fL (80.0-100.0); Nucleated Red Blood Cells % 0.1 %
[2025-05-07 08:40] LABS: Alanine Aminotransferase 22 U/L (7-40); Albumin 3.4 g/dL (3.2-4.8); Alkaline Phosphatase 85 U/L (46-116); Anion Gap 7 (5-15); BUN/Creatinine Ratio 22.1 (10.0-20.0); Carbon Dioxide 23 mmol/L (20-31); Glucose 88 mg/dL (74-106); Potassium 3.7 mmol/L (3.5-5.1); Sodium 141 mmol/L (136-145)
[2025-05-07 08:41] LABS: Bilirubin, Total 0.3 mg/dL (0.2-1.0)
[2025-05-07 08:42] LABS: Blood Urea Nitrogen 23 mg/dL (9-23); Calcium 8.5 mg/dL (8.7-10.4); Chloride 111 mmol/L (98-107); Total Protein 5.6 g/dL (5.7-8.2)
[2025-05-07] MEDS: IPRATROPIUM BROM 0.5 MG/2.5ML INH SOL NEB PRN (10:19)
[2025-05-07] MEDS: ALBUTEROL SULF 2.5 MG/0.5ML(0.5%) NEB SOLN NEB PRN (10:19)
--- NOTE | 2025-05-07 15:30 | DVH ---
NUCLEAR MEDICINE VENTILATION/PERFUSION LUNG SCAN. INDICATION: PULMONARY EMBOLISM COMPARISON: None TECHNIQUE: Following intravenous demonstration of 5.9 millicuries of technetium 99m MAA, and inhala tion of 5.8 mCi of xenon 133 scintigrams were obtained in multiple projections of the lungs. FINDINGS: There is normal uptake of radionuclide on both the ventilation and perfusion portions of the examinat ion. No mismatched perfusion defects are demonstrated. Uptake is normally homogeneous. IMPRESSION: 1. Low probability for PE.
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
[2025-05-07] MEDS ORDERED: MAALOX PLUS or MAALOX 30 ML PO PRN (19:30)
[2025-05-07] MEDS: PANTOPRAZOLE 40 MG/10 ML VIAL INJ IV SCH (21:41)
[2025-05-07] MEDS ORDERED: ATORVASTATIN 20 MG TAB PO SCH (22:00)
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
[2025-05-08] VITALS (10 sets, daily range): BP systolic 109–135; BP diastolic 55–66; PULSE 56–72; RESP 17–19; TEMP 97.2–98.7; O2SAT 92–100
[2025-05-08 08:12] LABS: Hematocrit 32.7 % (36.0-46.0); Hemoglobin 11.4 g/dL (12.2-16.2); Mean Corpuscular Hemoglobin 31.2 pg (28.0-32.0); Mean Corpuscular Volume 89.5 fL (80.0-100.0); Nucleated Red Blood Cells % 0.0 %
[2025-05-08 08:15] LABS: Anion Gap 7 (5-15); Carbon Dioxide 25 mmol/L (20-31); Potassium 4.1 mmol/L (3.5-5.1); Sodium 143 mmol/L (136-145)
[2025-05-08 08:20] LABS: BUN/Creatinine Ratio 16.3 (10.0-20.0); Blood Urea Nitrogen 17 mg/dL (9-23); Calcium 8.7 mg/dL (8.7-10.4); Chloride 111 mmol/L (98-107); Glucose 92 mg/dL (74-106)
[2025-05-08 08:22] LABS: Creatine Kinase IFCC 152 U/L (34-145)
[2025-05-08] MEDS: ENOXAPARIN SOD 40 MG/0.4 ML SYRINGE SC SCH (09:27)
[2025-05-08] MEDS ORDERED: ASCO500T11 PO (15:28)
[2025-05-08] MEDS ORDERED: FER325T PO (15:28)
[2025-05-08] MEDS ORDERED: CEPH250C PO (15:28)
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
[2025-05-08] MEDS: ATORVASTATIN 20 MG TAB PO SCH (21:14)
[2025-05-09] VITALS (10 sets, daily range): BP systolic 122–130; BP diastolic 61–65; PULSE 59–72; RESP 16–17; TEMP 36.6; O2SAT 93–98
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
--- NOTE | 2025-05-09 18:05 | DVHSR ---
APPROVED REPORT EXAM: Two-dimensional and M-mode echocardiogram with Doppler and color Doppler. Blood Pressure: 116/37 mmHg INDICATION Chest Pain RISK FACTORS Height: 67, Weight: 160 DIMENSIONS LVDd (3.8-5.7cm)LA (2D)4.3 (1.9-4.0cm)Aortic Root3.4 (2.0-3.7cm) LVDs (2.5-4.0cm)LA (MM) (1.9-4.0cm)Aortic Cusp Exc1.4 (1.5-2.0cm) EF (%) (55-70%)Rt. Atrium4.5 (1.9-4.0cm)Asc. Aorta cm Mitral Valve MitralMitral Stenosis E wave0.75m/sMV Mean GR.mmHg A wave0.82m/sMV Peak GR.92mmHg E/A ratio0.92D MVAcm2 DECEL [id number] 1/2 [id number] IVRTmsDop MVA3.04cm2 Aortic Valve Aortic ValveAortic Stenosis V11.21m/Jay Mean GR.7mmHg V21.86m/Jay Peak GR.14mmHg LVOT Diameter2.1 (1.8-2.4cm)Doppler AVA2.25cm2 Tricuspid Valve TR Velocity1.74m/s [id number] Conclusion LV EF IS 65% AND IS NORMAL MODERATE DEGREE PROLAPSE OF ANTERIOR LEAFLET OF MV AND TRICUSPID VALVE MODERATELY CALCIFIED AORTIC LEAFLETS PEAK GRADIENT ACROSS AORTIC VALVE IS 14 MM OF HG AND MEAN GRADIENT IS 7 MM OF HG NO EVIDENCE OF AORTIC STENOSIS NO EFFUSION NORMAL RV FUNCTION
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
--- NOTE | 2025-05-12 10:06 | ECG ---
[facility] Test Date: 2025-05-06 Test Time: 06:47:02 Pat Name: MAE CRUZ Department: Room: 0246T A Gender: F Director Corporate Communications: KIMBERLY : 1955 Requested By: PABLO HARLEY Order Number: [id number] Reading MD: Kieran Coronado Measurements Intervals [place] Rate: 75 P: 48 IN: 152 QRS: 61 QRSD: 105 T: 39 QT: 407 QTc: 455 Interpretive Statements Sinus rhythm consider inferior lateral ischemia Electronically Signed On 05-17-2025 22:19:14 PDT by Kieran Coronado Please click the below link to view image of tracing.
== END 2025-05-09 19:35 | disposition hospice, home (50) | DRG 871 ==
LOC: ER 05:58 → EDBD 05:58 → EDSEX 05:58 → OVERFLOW 09:59 → TELE-EAST 23:55
PROVIDERS: ADMIT Student in an Organized Health Care Education/Training Program; ATTEND Nurse Practitioner Family
DX: A41.9 Sepsis, unspecified organism (principal); N17.0 Acute kidney failure with tubular necrosis; J44.1 Chronic obstructive pulmonary disease with (acute) exacerbation; N30.00 Acute cystitis without hematuria; Z59.00 Homelessness unspecified; E87.6 Hypokalemia; E78.5 Hyperlipidemia, unspecified; F32.A Depression, unspecified; F41.1 Generalized anxiety disorder; E03.9 Hypothyroidism, unspecified; I12.9 Hypertensive chronic kidney disease with stage 1 through stage 4 chronic kidney disease, or unspecified chronic kidney disease; N18.32 Chronic kidney disease, stage 3b; R94.6 Abnormal results of thyroid function studies; F17.210 Nicotine dependence, cigarettes, uncomplicated; Z82.5 Family history of asthma and other chronic lower respiratory diseases; Z88.0 Allergy status to penicillin; F15.988 Other stimulant use, unspecified with other stimulant-induced disorder
CPT/HCPCS: 36415; 71045; 78582; 80048; 80053; 80307; 80320; 80329; 81001; 82550; 83735; 83880; 84439; 84443; 84481; 84484; 85025; 85379; 85652; 86141; 87040; 87086; 93005; 93306; 94640; 96365; G0378; J1956; J2470; J3490